=== PATIENT | male | born 1955 | race Two or more races ===

== ENCOUNTER 2017-02-17 05:43 | Day surgery (SDC) | payer OTHER ==
[~2017-02-17] VITALS: Ht 168.9 cm; Wt 81.2 kg
[2017-02-17] VITALS (12 sets, daily range): BP systolic 121–161; BP diastolic 80–106
[~2017-02-17 05:43] MED LIST: INDOCIN25 MG ORAL
[2017-02-17] MEDS ORDERED: Phenylephrine 10mg/ml Vial ONE (05:44)
[2017-02-17] MEDS ORDERED: Metoclopramide 10mg/2ml Inj ONE (05:44)
[2017-02-17] MEDS ORDERED: Dexamethasone 4mg/ml vial ONE (05:44)
[2017-02-17] MEDS ORDERED: DiphenhydrAMINE 50mg/ml Inj ONE ×2 (05:44→07:59)
[2017-02-17] MEDS ORDERED: Midazolam 2mg/2ml Inj ONE ×2 (05:44→09:52)
[2017-02-17] MEDS ORDERED: Nimbex 2mg/ml Inj 10ML IVP ONE (05:44)
[2017-02-17] MEDS ORDERED: Propofol 10mg/ml 20ml IV ONE (05:44)
[2017-02-17] MEDS ORDERED: fentaNYL 100 mcg/2 mL IV ONE (05:44)
[2017-02-17] MEDS ORDERED: celeBREX 200mg Cap **SURGERY PATIENTS ONLY ORAL ONE (06:00)
[2017-02-17] MEDS ORDERED: ceFAZolin 1gm in D5W 55ml IVP ONE (06:00)
[2017-02-17] MEDS ORDERED: oxyCONTIN 20mg tab ORAL ONE (06:00)
[2017-02-17] MEDS ORDERED: EPINEPHrine 1mg/1ml Amp ONE (06:30)
[2017-02-17] MEDS ORDERED: Bupivacaine w/Epi 0.25% 30ml Vial INJ ONE ×2 (06:30→07:03)
[2017-02-17] MEDS ORDERED: Ropivacaine 5mg/ml Vial 20ml INJ ONE (07:03)
--- NOTE | 2017-02-17 07:10 | Pre-Procedure Note/Attestation ---
Pre-Procedure Note/Attestation Complete Prior to Procedure Planned Procedure: left Procedure Narrative: shoulder arthroscopy, possible rc repair, biceps tenodesis, sad Indications for Procedure Pre-Operative Diagnosis: left shoulder rct, impingement, labral tear Attestation I attest that I discussed the nature of the procedure; its benefits; risks and complications; and alternatives (and the risks and benefits of such alternatives ), prior to the procedure, with the patient (or the patient's legal novelties sales representative). I attest that, if there was a reasonable possibility of needing a blood transfusion, the patient (or the patient's legal novelties sales representative) was given the [facility] standardized written summary, pursuant to the [place] Blood Safety Act ([place] Health and Safety Code # 1645, as amended). I attest that I re-evaluated the patient just prior to the surgery and that there has been no change in the patient's H&P, except as documented below: BRAULIO LUTZ Feb 17, 2017 07:10
--- NOTE | 2017-02-17 07:10 | Operative Note - PDOC ---
Operative Note Operative Note Pre-op Diagnosis: left shoulder rct, impingement, labral tear Procedure: see op report Post-op Diagnosis: same as pre-op plus Operative Findings: consistent w/pre-op dx studies Anesthesia: MAC Specimen: none Complications: none Condition: stable Estimated Blood Loss: none Implant(s) used?: Yes BRAULIO LUTZ Feb 17, 2017 07:10
--- NOTE | 2017-02-17 07:28 | Anethesia Preoperative Eval ---
Anesthesia Pre-op PMH/ROS General Date of Evaluation: Feb 17, 2017 Time of Evaluation: 07:27 Anesthesiologist: lexie ASA Score: ASA 2 Mallampati Score Class I : Soft palate, uvula, fauces, pillars visible Class II: Soft palate, uvula, fauces visible Class III: Soft palate, base of uvula visible Class IV: Only hard plate visible Surgeon: martine Diagnosis: rotator cuff tear Surgical Procedure: left shoulder arthroscopy /rotator cuff repair Anesthesia History: none Family History: no anesthesia problems Allergies: Coded Allergies: CEFAZOLIN (Verified Allergy, Severe, wheezing, rashes, 02/17/17) Medications: see eMAR Past Medical History Cardiovascular: Denies: CAD, HTN, MA, arrhythmia, other, valve dz Pulmonary: Denies: COPD, AMBROSIO, asthma, other Gastrointestinal/Genitourinary: Denies: CRI, ESRD, GERD, other Neurologic/Psychiatric: Reports: depression/anxiety, Denies: CVA, TIA, dementia, other Endocrine: Denies: DM, hypothyroidism, other, steroids HEENT: Denies: EKWOK (L), EKWOK (R), cataract (L), cataract (R), glaucoma, other Hematology/Immune: Denies: DVT, anemia, bleeding disorder, other Musculoskeletal/Integumentary: Denies: DDD, DJD, OA, RA, edema, other PSxH Narrative: gout Anesthesia Pre-op Phys. Exam Physician Exam Last Vital Signs Date Time Temp Pulse Resp B/P Pulse Ox O2 Delivery O2 Flow Rate FiO2 02/17/17 06:17 97.9 63 18 147/95 99 Room Air Constitutional: NAD Neurologic: CN 2-12 intact Cardiovascular: RRR Respiratory: CTA Gastrointestinal: S/NT/ND Airway Exam Mallampati Score: Class III MO: full Neck: thick TMD: 1fb ROM: full Dentures: no lower, no upper Anesthesia Pre-op A/P Labs wnl Studies Pre-op Studies: EKG - sr Risk Assessment & Plan Plan: AR Small CRNA Feb 17, 2017 07:28
[2017-02-17] MEDS ORDERED: Metoclopramide 10mg/2ml Inj IVP PRN (07:30)
[2017-02-17] MEDS ORDERED: fentaNYL 100 mcg/2 mL IV PRN ×2 (07:30→10:00)
[2017-02-17] MEDS ORDERED: Albuterol 90mcg Inhaler 8gm INH ONE (08:02)
[2017-02-17] MEDS ORDERED: Clindamycin 600mg 50 ML IV ONE (08:13)
[2017-02-17] MEDS: Midazolam 2mg/2ml Inj IVP PRN ×2 (09:50→10:05)
[2017-02-17] MEDS ORDERED: Ketorolac 30mg Inj IV PRN (10:00)
[2017-02-17] MEDS ORDERED: Hydromorphone 0.5mg/0.5ml inj IVP PRN (10:00)
--- NOTE | 2017-02-17 11:18 | 48 Hour Post Anesthesia Eval ---
Post Anesthesia Evaluation Procedure: left shoulder rotator cuff repair Date of Evaluation: Feb 17, 2017 Time of Evaluation: 11:17 Blood Pressure Systolic: 158 0: 105 Pulse Rate: 85 O2 Sat by Pulse Oximetry: 100 Airway: patent Nausea: No Vomiting: No Hydration Status: adequate Mental Status/LOC: patient returned to baseline Follow-up Care/Observations: stable Post-Anesthesia Complications: none Follow-up care needed: N/A AR LAW CRNA Feb 17, 2017 11:18
--- NOTE | 2017-02-17 11:23 | Immediate Post-Op Evaluation ---
Immediate Post-Op Evalulation Immediate Post-Op Evalulation Procedure: left shoulder rotator cuff repair Date of Evaluation: Feb 17, 2017 Time of Evaluation: 10:15 IV Fluids: 500 Blood Pressure Systolic: 150 Blood Pressure Diastolic: 100 Pulse Rate: 78 Respiratory Rate: 15 Temperature (Fahrenheit): 97.0 Nausea: No Vomiting: No Complications none Patient Status: awake Hydration Status: adequate Drug: clindamycin Given Within 1 Hr of Incision: Yes Time Given: 07:40 AR LAW CRNA Feb 17, 2017 11:23
[2017-02-17] MEDS ORDERED: D5 1/2NS 1,000 ML IV SCH (14:01)
[2017-02-17] MEDS ORDERED: Norco 5mg/325mg tab ORAL PRN (14:01)
[2017-02-17] MEDS ORDERED: Tylenol #3 tab (300mg/30mg) ORAL PRN (14:01)
[2017-02-17] MEDS ORDERED: HYDROmorphone 1mg/ml Carpuject SUBQ PRN (14:01)
--- NOTE | 2017-02-17 19:30 | Operative Note - Dictated ---
DATE OF OPERATION: 02/17/2017 PREOPERATIVE DIAGNOSES: 1. Left shoulder rotator cuff tear. 2. Left shoulder biceps tendon tear. 3. Superior labral tear. 4. Bursitis/impingement syndrome. POSTOPERATIVE DIAGNOSES: 1. Left shoulder rotator cuff tear. 2. Left shoulder biceps tendon tear. 3. Superior labral tear. 4. Bursitis/impingement syndrome. PROCEDURES: 1. Left shoulder diagnosed with extensive intraarticular debridement. 2. Arthroscopic rotator cuff repair. 3. Synovectomy and bursectomy and release of the coracoacromial ligament. SURGEON: Gibson Moore M.D. ANESTHESIA: Interscalene with general. INDICATION FOR THE PROCEDURE: The patient is a pleasant 61-year-old gentleman who sustained a significant injury to his left shoulder, subsequently was diagnosed with a high-grade almost full-thickness rotator cuff tear. Given continued difficulties with all activities and left hand pain elected to undergo left shoulder arthroscopy with rotator cuff repair. Risks, limitations, expectations and complications of the procedure discussed in detail including failure of the repair, continued pain, need for future surgery, risk of anesthesia, medical complications, DVT, PE, and mortality risks. DESCRIPTION OF PROCEDURE: An informed consent was obtained. The patient was brought to the operating room and placed under interscalene general anesthesia. The patient then carefully was placed in a beach-chair position. Left shoulder was prepped and draped in a sterile manner. The patient did receive a dose of Ancef and developed some hives, therefore, he had to have some minor treatment for the allergic response. Once that was resolved, attention was turned towards the site of surgery. The portal sites were marked out and injected with 0.25% Marcaine and epinephrine. Inferolateral stab incision then made and trocar placed into glenohumeral joint. Of note, there was significant chondral damage. There is some slight tearing of the subscapular, but no gross detachment of the footprint. The biceps tendon appeared to be ruptured with the stump of superior labrum was intact. The undersurface of the rotator cuff showed a significant full-thickness rotator cuff tear. At this point, a shaver was placed through the tear into the humeral joint and then the intraarticular with superior labrum down to stable salvage performed. The humeral head lateral to articular margin was debrided of any soft tissues. The camera was repositioned in the subacromial space. Complete bursectomy and release of the CA ligament was performed. Once that was done, the undersurface of the acromion was identified. Small acromioplasty was performed. Once that was done, the two margin convergence sutures were then placed. Once the margin convergence sutures were placed, two additional mattress sutures were placed on the anterior and posterior leaflets, this was then secured down covering and recreated the footprint. Once this was done, the camera was repositioned into the shoulder joint and the footprint was completely recreated. At this point, the instruments were removed. Portal sites were closed with 3-0 Monocryl sutures. Steri-Strips and a sterile dressing were applied. The patient awakened and taken to recovery with stable vital signs. ESTIMATED BLOOD LOSS: None. COMPLICATIONS: None. SPECIMENS: None. 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 Gibson Moore M.D. DR: CHANO JOB#: [id number] CC:
== END 2017-02-17 15:00 | disposition home or self-care (01) ==
LOC: SUR 05:43
DX: S46.012A Strain of muscle(s) and tendon(s) of the rotator cuff of left shoulder, initial encounter (principal); S43.432A Superior glenoid labrum lesion of left shoulder, initial encounter; S46.112A Strain of muscle, fascia and tendon of long head of biceps, left arm, initial encounter; M75.42 Impingement syndrome of left shoulder; M75.52 Bursitis of left shoulder; V43.92XA Unspecified car occupant injured in collision with other type car in traffic accident, initial encounter; Y92.410 Unspecified street and highway as the place of occurrence of the external cause; Y99.9 Unspecified external cause status; M10.9 Gout, unspecified; R20.0 Anesthesia of skin; M54.2 Cervicalgia; F32.9 Major depressive disorder, single episode, unspecified; F41.9 Anxiety disorder, unspecified; Z88.1 Allergy status to other antibiotic agents
CPT/HCPCS: 29823; 29826; 29827; J0171; J1100; J1200; J1885; J2250; J2370; J2405; J2704; J2765; J2795; J3010; 94003; 94150; C1713; S0077